=== PATIENT | male | born 1970 ===

== ENCOUNTER 2016-12-19 12:49 | Emergency (ER) | payer OTHER ==
[2016-12-19 12:55] VITALS: RESP 21; TEMP 98.2; O2SAT 100
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
[2016-12-19 14:59] LABS: ARTERIAL BLOOD GAS HCO3 23 mmol/L (21-28); ARTERIAL BLOOD GAS PH 7.37 (7.35-7.45); ARTERIAL BLOOD GAS PO2 113 mm/Hg (80-100)
[2016-12-19 15:00] LABS: ABG ALLEN TEST n; ARTERIAL BLOOD HGB O2 SAT 96.4 % (95.0-98.0); CARBOXYHEMOGLOBIN 0 % (0.5-1.5); DRAW SITE rb; HHB 2.9 % (0.0-5.0); METHEMOGLOBIN 0.7 % (0.0-3.0)
[2016-12-19 16:28] VITALS: BP 168/94
[2016-12-19 16:29] VITALS: PULSE 101
== END 2016-12-19 16:46 | disposition home or self-care (01) ==
LOC: H.ER 12:49
DX: J68.9 Unspecified respiratory condition due to chemicals, gases, fumes and vapors (principal); H02.89 Other specified disorders of eyelid